=== PATIENT | female | born 1945 | race Caucasian/White ===

== ENCOUNTER → 2023-07-24 10:03 | Outpatient (REF) | payer OTHER, SELFPAY | LOC: RCS 10:03 | PROVIDERS: ATTENDING PHYSICIAN Student in an Organized Health Care Education/Training Program | DX: F06.30 Mood disorder due to known physiological condition, unspecified (principal); F31.89 Other bipolar disorder; F41.1 Generalized anxiety disorder | CPT/HCPCS: 93005 ==

== ENCOUNTER → 2023-08-02 11:28 | Outpatient (REF) | payer OTHER, MEDICARE, SELFPAY | LOC: REG 11:28 | PROVIDERS: ATTENDING PHYSICIAN Student in an Organized Health Care Education/Training Program | DX: G30.9 Alzheimer's disease, unspecified (principal) | CPT/HCPCS: 36415 ==

== ENCOUNTER → 2023-08-26 09:51 | Outpatient (REF) | payer OTHER, SELFPAY | LOC: REG 09:51 | PROVIDERS: ATTENDING PHYSICIAN Psychiatry & Neurology Vascular Neurology | DX: G30.9 Alzheimer's disease, unspecified (principal) | CPT/HCPCS: 81401; 36415 ==

== ENCOUNTER → 2023-09-04 08:22 | Outpatient (REF) | payer OTHER, SELFPAY | LOC: MRI 08:22 | PROVIDERS: ATTENDING PHYSICIAN Psychiatry & Neurology Vascular Neurology | DX: G30.9 Alzheimer's disease, unspecified (principal) | CPT/HCPCS: 70551 ==

== ENCOUNTER → 2024-12-20 09:46 | Outpatient (REF) | payer MEDICARE, OTHER, SELFPAY | LOC: RAD 09:46 | PROVIDERS: ATTENDING PHYSICIAN Hospitalist | DX: Z13.820 Encounter for screening for osteoporosis (principal); E03.9 Hypothyroidism, unspecified; M81.0 Age-related osteoporosis without current pathological fracture | CPT/HCPCS: 36415; 77080; 84439; 84443 ==

== ENCOUNTER → 2025-01-18 09:18 | Outpatient (REF) | payer MEDICARE, OTHER, SELFPAY ==
[2025-01-18 11:59] LABS: TSH 0.05 uIU/ml (0.47-4.68)
== END ==
LOC: REG 09:18
PROVIDERS: ATTENDING PHYSICIAN Hospitalist
DX: E03.9 Hypothyroidism, unspecified (principal)
CPT/HCPCS: 36415; 84439; 84443

== ENCOUNTER → 2025-03-06 09:51 | Outpatient (REF) | payer MEDICARE, OTHER, SELFPAY ==
[2025-03-06 10:59] LABS: Hematocrit 43.4 % (37.0-47.0); Hemoglobin 14.8 g/dL (12.0-16.0); Mean Corp Hgb Conc. 34.1 g/dL (33.0-37.0); Mean Corpuscular Volume 91.8 fL (81.0-99.0); Nucleated Red Blood Cells % 0 %; Platelet Count 283 10^3/uL (130-400); Red Cell Dist. Width 12.3 % (11.5-14.5)
[2025-03-06 11:22] LABS: ALT (SGPT) 25 U/L (0-35); AST (SGOT) 27 U/L (14-36); Albumin 4.6 g/dl (3.5-5.0); Alkaline Phosphatase 53 U/L (38-126); Blood Urea Nitrogen 14 mg/dl (7-17); Calcium 9.6 mg/dl (8.4-10.2); Carbon Dioxide 27 mmol/L (22-30); Chloride 104 mmol/L (98-107); Glucose 93 mg/dl (70-99); HDL Cholesterol 99 mg/dl; LDL Cholesterol, Calculated 81 mg/dl; Potassium 4.6 mmol/L (3.5-5.1); Sodium 139 mmol/L (135-145); Total Protein 7.0 g/dl (6.3-8.2); Very Low Density Lipoprotein 18 mg/dl (0-30); eGFR 51.43
== END ==
LOC: REG 09:51
PROVIDERS: ATTENDING PHYSICIAN Hospitalist
DX: E03.9 Hypothyroidism, unspecified (principal); G30.9 Alzheimer's disease, unspecified; R53.83 Other fatigue; Z00.00 Encounter for general adult medical examination without abnormal findings
CPT/HCPCS: 36415; 80053; 80061; 84443; 85025

== ENCOUNTER → 2025-05-04 09:30 | Outpatient (REF) | payer MEDICARE, OTHER, SELFPAY ==
[2025-05-04 12:07] LABS: Blood Urea Nitrogen 18 mg/dl (7-17); Calcium 9.0 mg/dl (8.4-10.2); Carbon Dioxide 27 mmol/L (22-30); Chloride 103 mmol/L (98-107); Glucose 85 mg/dl (70-99); Potassium 4.3 mmol/L (3.5-5.1); Sodium 141 mmol/L (135-145); eGFR 57.66
== END ==
LOC: REG 09:30
PROVIDERS: ATTENDING PHYSICIAN Hospitalist
DX: R79.89 Other specified abnormal findings of blood chemistry (principal)
CPT/HCPCS: 36415; 80048